=== PATIENT | male | born 1975 | race African-American/Black ===

== ENCOUNTER 2019-01-16 11:57 | Emergency (ER) | payer OTHER ==
[~2019-01-16] VITALS: Ht 172.7 cm; Wt 93.4 kg
[2019-01-16 12:01] VITALS: Ht 172.7 cm; Wt 93.4 kg
--- NOTE | 2019-01-16 12:09 | NUR ---
EKG COMPLETED IN TRIAGE.
[2019-01-16 13:19] LABS: AMPHETAMINE QUAL UR NONE DETECTED (See below)
--- NOTE | 2019-01-16 13:21 | NUR ---
XRAY COMPLETED AT BEDSIDE.
--- NOTE | 2019-01-16 13:23 | NUR ---
PT OFF THE FLOOR TO CT VIA JAEL
[2019-01-16 13:26] LABS: BASOPHIL % 1.1 % (0-2); PLATELET COUNT 300 x10^3mcL (130-400); RED CELL DISTRIBUTION WIDTH 13.1 % (11.5-14.5)
--- NOTE | 2019-01-16 13:39 | NUR ---
PT BACK FROM CT WITHOUT INCIDENT.
[2019-01-16 13:40] LABS: CALCIUM 8.8 mg/dL (8.5-10.1); CARBON DIOXIDE 29.2 mmol/L (21-32); CHLORIDE SERUM 102 mmol/L (98-107); CREATININE SERUM 1.2 mg/dL (0.7-1.3); GFR1 > 60 mL/min; GLUCOSE SERUM 102 mg/dL (74-106); POTASSIUM SERUM 3.7 mmol/L (3.5-5.1); SODIUM SERUM 138 mmol/L (136-145)
[2019-01-16 13:43] LABS: ALBUMIN 3.7 g/dL (3.4-5.0); ALKALINE PHOSPHATASE 75 U/L (46-116); ALT/SGPT 41 U/L (16-63); AST/SGOT 34 U/L (15-37); BILIRUBIN TOTAL 0.5 mg/dL (0.20-1.00); TOTAL PROTEIN, SERUM 7.7 g/dL (6.4-8.2)
[2019-01-16 13:44] LABS: microscopic required? YES; urine erythrocyte 2+ (NEGATIVE)
[2019-01-16 15:03] LABS: CHOLESTEROL/HDL RATIO 4.7
--- NOTE | 2019-01-16 16:01 | NUR ---
CALLED [facility] AND GAVE REPORT TO HEIDI BUSTOS. ALL QUESTIONS ADDRESSED AT THIS TIME. PT TAKEN TO [facility] CODE 3 [facility] LEAVING AT THIS TIME.
[2019-01-16 16:07] VITALS: BP 155/86
== END 2019-01-16 16:07 | disposition short-term general hospital (02) ==
LOC: ED 11:57 → IC 14:22 → ED 14:22 → DU 14:22 → ED 16:07
PROVIDERS: Emergency Medicine; General Practice
DX: I21.3 ST elevation (STEMI) myocardial infarction of unspecified site (principal); I16.1 Hypertensive emergency; R79.89 Other specified abnormal findings of blood chemistry
CPT/HCPCS: 83880; J0360; J1885; J3490; Q0092